=== PATIENT | male | born 1990 | race American Indian/Alaskan Native ===

== ENCOUNTER 2017-08-09 20:42 | Emergency (ER) | payer SELFPAY ==
[2017-08-09] MEDS ORDERED: ANCEF IM ONE (23:11)
[2017-08-09] MEDS ORDERED: BOOSTRIX IM ONE (23:12)
[2017-08-09 23:26] VITALS: BP 116/78
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
== END 2017-08-10 00:16 | disposition left against medical advice (07) ==
LOC: ED 20:42
DX: S70.312A Abrasion, left thigh, initial encounter (principal); W34.00XA Accidental discharge from unspecified firearms or gun, initial encounter; Y93.89 Activity, other specified; Y92.89 Other specified places as the place of occurrence of the external cause; Y99.8 Other external cause status; F17.200 Nicotine dependence, unspecified, uncomplicated
CPT/HCPCS: 90471; 90715; 96372; 99282; J0690